=== PATIENT | female | born 1945 | race Caucasian/White ===

== ENCOUNTER 2017-06-27 03:34 | Inpatient (IN) | payer OTHER ==
[~2017-06-27] VITALS: Ht 160 cm; Wt 97.1 kg
[~2017-06-27 03:34] MED LIST: ALLO300T PO; AMLO10TA2 PO; AMLO5TAB2 PO; ASPI-621 PO; ATOR40TA78 PO; CARV6.252 PO; CLOP75TA PO; HYDR25TA6 PO; IRBE300T16 PO; METF500T4 PO; TICA90TA PO
[2017-06-27] MEDS ORDERED: APIX5TAB PO (04:11)
[2017-06-27] MEDS ORDERED: METO25TA35 PO (04:11)
[2017-06-27] MEDS ORDERED: SODIUM CHLORIDE FLUSH 10ML SYR IVF ONE (05:00)
[2017-06-27] MEDS ORDERED: SODIUM CHLORIDE 0.9% 1,000ML IVBOLUS ONE (05:00)
[2017-06-27 05:39] LABS: HEMATOCRIT 39.5 % (34.6-47.8); HEMOGLOBIN 12.6 g/dL (11.7-16.4); WHITE BLOOD COUNT 9.3 x10^3/uL (3.4-10)
[2017-06-27 05:45] LABS: ASPARTATE AMINO TRANSFERASE 13 U/L (15-37); BLOOD UREA NITROGEN 16 mg/dL (7-18)
[2017-06-27 05:54] LABS: IS PT STATUS REG ER OR PRE ER? YES
[2017-06-27] MEDS ORDERED: CEFTRIAXONE PMX 1GM/50ML 50 ML ONE (06:42)
[2017-06-27] MEDS ORDERED: SODIUM CHLORIDE FLUSH 10ML SYR IVF PRN (07:00)
[2017-06-27] MEDS ORDERED: CEFTRIAXONE PMX 1GM/50ML 50 ML IV ONE (07:00)
[2017-06-27] MEDS ORDERED: LABETALOL 5MG/ML, 20ML IVPush PRN (08:00)
[2017-06-27] MEDS ORDERED: DOCUSATE 100 MG CAPSULE PO PRN (08:00)
[2017-06-27] MEDS ORDERED: HYDROcodone/APAP 5/325 TABLET PO PRN (08:00)
[2017-06-27] MEDS ORDERED: ACETAMINOPHEN 325 MG TABLET PO PRN (08:00)
[2017-06-27] MEDS ORDERED: MORPHINE SULFATE 4 MG/ML, 1ML IVPush PRN (08:00)
[2017-06-27] MEDS ORDERED: hydrALAzine 20 MG/ML, 1ML IVPush PRN (08:00)
[2017-06-27] MEDS ORDERED: ENALAPRILAT 1.25 MG/ML, 2ML IVPush PRN (08:00)
[2017-06-27] MEDS ORDERED: PROMETHAZINE 25 MG/ML, 1ML IM PRN (08:00)
[2017-06-27] MEDS ORDERED: POLYETHYLENE GLYCOL 17 GM PACKET PO PRN (08:00)
[2017-06-27] MEDS ORDERED: BISACODYL 10 MG SUPP PR PRN (08:00)
[2017-06-27] MEDS ORDERED: METOCLOPRAMIDE 5 MG/ML, 2ML IVPush PRN (08:00)
[2017-06-27] MEDS ORDERED: ONDANSETRON 2MG/ML, 2ML IVPush PRN (08:00)
[2017-06-27 08:28] VITALS: BP 160/70
[2017-06-27 08:38] LABS: IS PT STATUS REG ER OR PRE ER? NO
[2017-06-27] MEDS: CEFTRIAXONE PMX 1GM/50ML 50 ML IV SCH (08:50)
[2017-06-27] MEDS ORDERED: ASPI-515 PO (09:52)
[2017-06-27] MEDS: AMLODIPINE 5 MG TABLET PO SCH (11:09)
[2017-06-27] MEDS: HYDROCHLOROTHIAZIDE 25 MG TABLET PO SCH (11:09)
[2017-06-27] MEDS: METOPROLOL TARTRATE 25 MG TABLET PO SCH (11:09)
[2017-06-27] MEDS: ALLOPURINOL 300 MG TABLET PO SCH (11:09)
[2017-06-27] MEDS: APIXABAN 5 MG TABLET PO SCH ×2 (11:09→20:05)
[2017-06-27] MEDS: IRBESARTAN 300 MG TABLET PO SCH (11:09)
[2017-06-27] MEDS ORDERED: GLUCAGON 1 MG IM PRN (12:00)
[2017-06-27] MEDS ORDERED: DEXTROSE 4 GM TAB.CHEW PO PRN (12:00)
[2017-06-27] MEDS ORDERED: DEXTROSE 50%, 50ML SYRINGE IVPush PRN (12:00)
[2017-06-27] MEDS: ASPIRIN 81 MG TABLET EC PO SCH ×2 (12:18→20:19)
[2017-06-27] MEDS ORDERED: MECLIZINE 12.5 MG TABLET PO PRN (12:30)
[2017-06-27 12:49] VITALS: BP 145/70
[2017-06-27 14:32] LABS: IS PT STATUS REG ER OR PRE ER? NO
[2017-06-27] MEDS: INSULIN ASPART 100 UNITS/ML, PEN SQ-INSULIN SCH ×2 (16:14→20:06)
[2017-06-27] MEDS: SODIUM CHLORIDE FLUSH 10ML SYR IVF SCH (20:05)
[2017-06-27 20:10] VITALS: BP 144/72
[2017-06-27] MEDS ORDERED: ATORVASTATIN 40 MG TABLET PO SCH (21:00)
[2017-06-27] MEDS ORDERED: ASPIRIN 81 MG TABLET EC PO SCH (21:00)
[2017-06-28 03:12] VITALS: BP 144/90
[2017-06-28 06:24] LABS: HEMATOCRIT 39.2 % (34.6-47.8); HEMOGLOBIN 12.5 g/dL (11.7-16.4); WHITE BLOOD COUNT 7.7 x10^3/uL (3.4-10)
[2017-06-28 06:38] LABS: BLOOD UREA NITROGEN 13 mg/dL (7-18)
[2017-06-28 06:48] LABS: ASPARTATE AMINO TRANSFERASE 11 U/L (15-37)
[2017-06-28] MEDS: INSULIN ASPART 100 UNITS/ML, PEN SQ-INSULIN SCH ×3 (07:00→15:53)
[2017-06-28 08:24] VITALS: BP 156/70
[2017-06-28] MEDS: CEFTRIAXONE PMX 1GM/50ML 50 ML IV SCH (08:27)
[2017-06-28] MEDS: APIXABAN 5 MG TABLET PO SCH (08:28)
[2017-06-28] MEDS: METOPROLOL TARTRATE 25 MG TABLET PO SCH (08:28)
[2017-06-28] MEDS: HYDROCHLOROTHIAZIDE 25 MG TABLET PO SCH (08:28)
[2017-06-28] MEDS: IRBESARTAN 300 MG TABLET PO SCH (08:28)
[2017-06-28] MEDS: ASPIRIN 81 MG TABLET EC PO SCH (08:28)
[2017-06-28] MEDS: AMLODIPINE 5 MG TABLET PO SCH (08:28)
[2017-06-28] MEDS: SODIUM CHLORIDE FLUSH 10ML SYR IVF SCH (08:28)
[2017-06-28] MEDS: ALLOPURINOL 300 MG TABLET PO SCH (08:28)
[2017-06-28] MEDS ORDERED: MAGNESIUM SULFATE PMX 2GM/50ML 50 ML IV ONE (10:00)
[2017-06-28 12:55] VITALS: BP 149/74
[2017-06-28] MEDS ORDERED: REGADENOSON 0.4 MG/5 ML SYRINGE ONE (14:46)
[2017-06-28] MEDS ORDERED: LACT1CAP24 PO (17:45)
[2017-06-28] MEDS ORDERED: CEFD300C37 PO (17:45)
== END 2017-06-28 18:23 | disposition home or self-care (01) | DRG 690 ==
LOC: ED 05:09 → EDIP 06:51 → 5SO 08:20
PROVIDERS: ADMIT Internal Medicine; ATTEND Internal Medicine
DX: N30.00 Acute cystitis without hematuria (principal); D68.69 Other thrombophilia; I48.92 Unspecified atrial flutter; I50.32 Chronic diastolic (congestive) heart failure; E11.40 Type 2 diabetes mellitus with diabetic neuropathy, unspecified; I11.0 Hypertensive heart disease with heart failure; I48.0 Paroxysmal atrial fibrillation; E66.01 Morbid (severe) obesity due to excess calories; E78.00 Pure hypercholesterolemia, unspecified; E78.5 Hyperlipidemia, unspecified; F41.1 Generalized anxiety disorder; H81.10 Benign paroxysmal vertigo, unspecified ear; I25.10 Atherosclerotic heart disease of native coronary artery without angina pectoris; I25.2 Old myocardial infarction; I34.0 Nonrheumatic mitral (valve) insufficiency; M10.9 Gout, unspecified; Z68.37 Body mass index [BMI] 37.0-37.9, adult; Z95.5 Presence of coronary angioplasty implant and graft; Z79.84 Long term (current) use of oral hypoglycemic drugs; Z79.899 Other long term (current) drug therapy; Z79.01 Long term (current) use of anticoagulants; Z79.82 Long term (current) use of aspirin; K52.9 Noninfective gastroenteritis and colitis, unspecified
CPT/HCPCS: 36415; 70551; 74022; 78452; 80053; 80061; 81001; 82962; 83735; 84443; 84484; 85025; 87086; 93005; 93017; 93306; 96365; J0696; J2785; A9502; C9898; J3475; J7030

== ENCOUNTER 2017-12-24 02:36 | Emergency (ER) | payer OTHER ==
[~2017-12-24] VITALS: Ht 160 cm; Wt 98.9 kg
[~2017-12-24 02:36] MED LIST changes: +APIX5TAB PO; +ASPI-515 PO; +CEFD300C37 PO; +LACT1CAP24 PO; +METO25TA35 PO
[2017-12-24] MEDS ORDERED: ONDANSETRON 2MG/ML, 2ML ONE (03:12)
[2017-12-24] MEDS ORDERED: SODIUM CHLORIDE 0.9% 1,000ML IVBOLUS ONE (03:30)
[2017-12-24] MEDS ORDERED: ONDANSETRON 2MG/ML, 2ML IVPush ONE (03:30)
[2017-12-24 03:48] LABS: BASOPHILS # (AUTO) 0.03 x10^3/uL (0-0.1); BASOPHILS % (AUTO) 0 % (0-1); EOSINOPHILS # (AUTO) 0.15 x10^3/uL (0-0.4); EOSINOPHILS % (AUTO) 2 % (1-7); LYMPHOCYTES # (AUTO) 1.61 x10^3/uL (1-3.4); LYMPHOCYTES % (AUTO) 16 % (22-44); MD NO; MEAN CORPUSCULAR HGB CONC 32.1 g/dL (32.4-35.8); MEAN CORPUSCULAR VOLUME 84.1 fL (80-100); MEAN PLATELET VOLUME 9.6 fL (7.4-10.4); MONOCYTES # (AUTO) 0.47 x10^3/uL (0.2-0.8); MONOCYTES % (AUTO) 5 % (2-9); NEUTROPHILS # (AUTO) 7.93 x10^3/uL (1.8-6.8); NEUTROPHILS % (AUTO) 78 % (42-75); PLATELET COUNT 263 x10^3/uL (130-400); RED BLOOD COUNT 4.49 x10^6/uL (3.82-5.3); RED CELL DISTRIBUTION WIDTH 15.8 % (9.6-15.2)
[2017-12-24 04:01] LABS: ALANINE AMINOTRANSFERASE 22 U/L (12-78); ALBUMIN 3.6 g/dL (3.4-5.0); ANION GAP 5 mmol/L (5-15); CALCIUM 8.3 mg/dL (8.5-10.1); CHLORIDE 105 mmol/L (98-107); CREATININE 0.69 mg/dL (0.55-1.02)
[2017-12-24 04:05] LABS: ALKALINE PHOSPHATASE 93 U/L (45-117); BILIRUBIN,TOTAL 0.2 mg/dL (0.2-1.0); TOTAL PROTEIN 7.8 g/dL (6.4-8.2); TROPONIN I < 0.015 ng/mL (0.000-0.045)
[2017-12-24 04:59] VITALS: BP 126/47
== END 2017-12-24 05:23 | disposition home or self-care (01) ==
LOC: ED 03:55
DX: R42 Dizziness and giddiness (principal); E11.9 Type 2 diabetes mellitus without complications; E78.00 Pure hypercholesterolemia, unspecified; I25.2 Old myocardial infarction; I10 Essential (primary) hypertension
CPT/HCPCS: 36415; 70450; 71045; 80053; 84484; 85025; 93005; 96361; 96374; 99285; J2405; J7030

== ENCOUNTER 2018-11-17 08:37 | Inpatient (IN) | payer OTHER ==
[~2018-11-17] VITALS: Ht 160 cm; Wt 96.8 kg
[~2018-11-17 08:37] MED LIST changes: +AMLO-150 PO; -AMLO10TA2 PO; +AMLO10TA6 PO; -AMLO5TAB2 PO; -ASPI-621 PO; +ASPI81TA45 PO; +METF500T17 PO; -METF500T4 PO
[2018-11-17] MEDS ORDERED: DILTIAZEM 5 MG/ML, 5ML ONE (09:29)
[2018-11-17] MEDS ORDERED: DILTIAZEM 5 MG/ML, 5ML IVPush ONE (09:30)
[2018-11-17 09:46] LABS: BASOPHILS # (AUTO) 0.04 x10^3/uL (0-0.1); BASOPHILS % (AUTO) 0 % (0-1); EOSINOPHILS # (AUTO) 0.21 x10^3/uL (0-0.4); EOSINOPHILS % (AUTO) 2 % (1-7); LYMPHOCYTES # (AUTO) 2.34 x10^3/uL (1-3.4); LYMPHOCYTES % (AUTO) 22 % (22-44); MD NO; MEAN CORPUSCULAR HEMOGLOBIN 27.7 pg (27.0-34.8); MEAN CORPUSCULAR HGB CONC 32.3 g/dL (32.4-35.8); MEAN CORPUSCULAR VOLUME 85.8 fL (80-100); MEAN PLATELET VOLUME 10.3 fL (7.4-10.4); MONOCYTES % (AUTO) 4 % (2-9); NEUTROPHILS # (AUTO) 7.67 x10^3/uL (1.8-6.8); NEUTROPHILS % (AUTO) 72 % (42-75); PLATELET COUNT 281 x10^3/uL (130-400); RED BLOOD COUNT 5.02 x10^6/uL (3.82-5.3); RED CELL DISTRIBUTION WIDTH 15.4 % (9.6-15.2)
[2018-11-17 09:54] LABS: INTERNATIONAL NORMALIZED RATIO 1.08 (0.93-1.1); PROTHROMBIN TIME 11.4 Seconds (9.6-11.5)
[2018-11-17 09:56] LABS: ANION GAP 10 mmol/L (5-15); CALCIUM 8.8 mg/dL (8.5-10.1); CHLORIDE 104 mmol/L (98-107)
--- NOTE | 2018-11-17 09:59 | NUR ---
Cassie from [facility]'s office has called, a follow up is scheduled for Nov 18 at 0900 at [id number] [facility] [id number] patient updated
[2018-11-17 10:01] LABS: ALANINE AMINOTRANSFERASE 23 U/L (12-78); ALKALINE PHOSPHATASE 126 U/L (45-117); BILIRUBIN,TOTAL 0.6 mg/dL (0.2-1.0); CREATININE 0.69 mg/dL (0.55-1.02); TOTAL PROTEIN 8.6 g/dL (6.4-8.2)
[2018-11-17] MEDS: PANTOPROZOLE 40MG TABLET PO SCH ×3 (12:00→19:59)
[2018-11-17] MEDS ORDERED: ONDANSETRON 2MG/ML, 2ML IVPush PRN (12:00)
[2018-11-17] MEDS ORDERED: hydrALAzine 20 MG/ML, 1ML IVPush PRN (12:00)
[2018-11-17] MEDS: METOPROLOL TARTRATE 25 MG TABLET PO SCH ×2 (12:00→13:18)
[2018-11-17] MEDS ORDERED: morphine SULFATE 10 MG/ML, 1ML IVPush PRN (12:00)
[2018-11-17] MEDS: APIXABAN 5 MG TABLET PO SCH ×3 (12:00→19:59)
[2018-11-17] MEDS: SUCRALFATE 1 GM TABLET PO SCH ×3 (12:00→19:59)
[2018-11-17] MEDS ORDERED: TEMAZEPAM 15 MG CAPSULE PO PRN (12:00)
[2018-11-17] MEDS ORDERED: OXYcodone IR 5MG TABLET PO PRN (12:00)
[2018-11-17] MEDS: ALLOPURINOL 300 MG TABLET PO SCH ×2 (12:00→13:18)
[2018-11-17] MEDS ORDERED: POLYETHYLENE GLYCOL 17 GM PACKET PO PRN (12:00)
--- NOTE | 2018-11-17 12:19 | NUR ---
Report given to YOSHI Yuan, patient updated of transfer plan, RTG status now. During this ER visit the patient has been in afib on the awake overnight monitor rate down to 80s following cardizem push by YOSHI Stevens, at this time Afib in the 120s, vitals otherwise stable. She ambulates to bathroom safely unassisted, PWD, call light in reach, NADN, she reports that her symptoms are reduced following cardizem administration.
[2018-11-17] MEDS: DILTIAZEM 125 MG in SODIUM CHLORIDE 0.9% 100 ML IV SCH (13:18)
[2018-11-17 13:31] VITALS: BP 107/66
[2018-11-17] MEDS ORDERED: CARVEDILOL 12.5 MG TABLET PO SCH (18:00)
[2018-11-17] MEDS: ACETAMINOPHEN 325 MG TABLET PO PRN (18:23)
[2018-11-17] MEDS: ATORVASTATIN 40 MG TABLET PO SCH (20:00)
[2018-11-17] MEDS: SODIUM CHLORIDE FLUSH 10ML SYR IVF SCH (20:00)
[2018-11-17 21:55] VITALS: BP 105/76
[2018-11-18] MEDS: DILTIAZEM 125 MG in SODIUM CHLORIDE 0.9% 100 ML IV SCH (00:31)
[2018-11-18 01:02] VITALS: BP 133/74
[2018-11-18 05:01] LABS: MICROSCOPIC AUTO
[2018-11-18 05:09] LABS: CULTURE INDICATED? YES
[2018-11-18 06:07] LABS: BASOPHILS # (AUTO) 0.03 x10^3/uL (0-0.1); BASOPHILS % (AUTO) 0 % (0-1); EOSINOPHILS # (AUTO) 0.16 x10^3/uL (0-0.4); EOSINOPHILS % (AUTO) 2 % (1-7); LYMPHOCYTES # (AUTO) 2.85 x10^3/uL (1-3.4); LYMPHOCYTES % (AUTO) 29 % (22-44); MD NO; MEAN CORPUSCULAR HEMOGLOBIN 28.7 pg (27.0-34.8); MEAN CORPUSCULAR HGB CONC 33.1 g/dL (32.4-35.8); MEAN CORPUSCULAR VOLUME 86.7 fL (80-100); MEAN PLATELET VOLUME 10.2 fL (7.4-10.4); MONOCYTES # (AUTO) 0.54 x10^3/uL (0.2-0.8); MONOCYTES % (AUTO) 5 % (2-9); NEUTROPHILS # (AUTO) 6.38 x10^3/uL (1.8-6.8); NEUTROPHILS % (AUTO) 64 % (42-75); PLATELET COUNT 269 x10^3/uL (130-400); RED CELL DISTRIBUTION WIDTH 15.9 % (9.6-15.2)
[2018-11-18 06:21] LABS: ALBUMIN 3.4 g/dL (3.4-5.0); ANION GAP 9 mmol/L (5-15); CALCIUM 8.7 mg/dL (8.5-10.1); CHLORIDE 106 mmol/L (98-107)
[2018-11-18 06:26] LABS: ALANINE AMINOTRANSFERASE 20 U/L (12-78); ALKALINE PHOSPHATASE 103 U/L (45-117); BILIRUBIN,TOTAL 0.7 mg/dL (0.2-1.0); CREATININE 0.61 mg/dL (0.55-1.02); TOTAL PROTEIN 7.4 g/dL (6.4-8.2)
[2018-11-18 06:36] LABS: HEMOGLOBIN A1C 6.9 % (4.2-6.3)
[2018-11-18 07:18] VITALS: BP 121/62
[2018-11-18 08:12] VITALS: BP 116/67
[2018-11-18] MEDS: ALLOPURINOL 300 MG TABLET PO SCH (08:13)
[2018-11-18] MEDS: APIXABAN 5 MG TABLET PO SCH ×2 (08:13→22:07)
[2018-11-18] MEDS: SUCRALFATE 1 GM TABLET PO SCH ×4 (08:13→22:06)
[2018-11-18] MEDS: PANTOPROZOLE 40MG TABLET PO SCH ×2 (08:13→22:07)
[2018-11-18] MEDS: SODIUM CHLORIDE FLUSH 10ML SYR IVF SCH (08:14)
[2018-11-18] MEDS: METOPROLOL TARTRATE 25 MG TABLET PO SCH (08:14)
[2018-11-18] MEDS: ACETAMINOPHEN 325 MG TABLET PO PRN ×2 (08:33→22:07)
[2018-11-18] MEDS ORDERED: MAGNESIUM SULFATE PMX 4GM/100M 100 ML IVPB ONE (10:30)
[2018-11-18] MEDS ORDERED: DILTIAZEM 125 MG in SODIUM CHLORIDE 0.9% 100 ML IV SCH (12:00)
[2018-11-18 13:47] VITALS: BP 135/63
[2018-11-18] MEDS: DILTIAZEM 30 MG TABLET PO SCH ×2 (18:45→22:11)
[2018-11-18 18:46] VITALS: BP 153/64
[2018-11-18] MEDS: CEFTRIAXONE PMX 2GM/50ML 50 ML IV SCH (22:05)
[2018-11-18] MEDS: ATORVASTATIN 40 MG TABLET PO SCH (22:07)
[2018-11-18 22:11] VITALS: BP 156/78
[2018-11-19 00:30] VITALS: BP 128/65
[2018-11-19 04:40] VITALS: BP 146/72
[2018-11-19] MEDS: DILTIAZEM 30 MG TABLET PO SCH (04:41)
[2018-11-19] MEDS: ACETAMINOPHEN 325 MG TABLET PO PRN ×2 (04:44→09:06)
[2018-11-19 07:45] VITALS: BP 158/79
[2018-11-19] MEDS: SUCRALFATE 1 GM TABLET PO SCH ×4 (08:10→20:44)
[2018-11-19] MEDS: METOPROLOL TARTRATE 25 MG TABLET PO SCH ×2 (09:05→20:44)
[2018-11-19] MEDS: ALLOPURINOL 300 MG TABLET PO SCH (09:05)
[2018-11-19] MEDS: APIXABAN 5 MG TABLET PO SCH ×2 (09:05→20:44)
[2018-11-19] MEDS: PANTOPROZOLE 40MG TABLET PO SCH ×2 (09:05→20:44)
[2018-11-19] MEDS ORDERED: FURO20TA3 PO (09:09)
[2018-11-19 11:10] VITALS: BP 155/70
[2018-11-19] MEDS: IRBESARTAN 300 MG TABLET PO SCH (11:11)
[2018-11-19] MEDS ORDERED: DILTIAZEM 30 MG TABLET PO SCH (12:00)
[2018-11-19 13:02] VITALS: BP 134/67
[2018-11-19] MEDS: ATORVASTATIN 40 MG TABLET PO SCH (20:43)
[2018-11-19 21:32] VITALS: BP 149/73
[2018-11-19] MEDS: CEFTRIAXONE PMX 2GM/50ML 50 ML IV SCH (22:26)
[2018-11-20 03:05] VITALS: BP 159/63
[2018-11-20] MEDS: SUCRALFATE 1 GM TABLET PO SCH ×2 (06:23→11:23)
[2018-11-20 08:10] VITALS: BP 159/73
[2018-11-20] MEDS: ALLOPURINOL 300 MG TABLET PO SCH (09:11)
[2018-11-20] MEDS: PANTOPROZOLE 40MG TABLET PO SCH (09:12)
[2018-11-20] MEDS: IRBESARTAN 300 MG TABLET PO SCH (09:12)
[2018-11-20] MEDS: APIXABAN 5 MG TABLET PO SCH (09:12)
[2018-11-20] MEDS: METOPROLOL TARTRATE 25 MG TABLET PO SCH (09:13)
[2018-11-20] MEDS ORDERED: SUCR1TAB33 PO (12:21)
[2018-11-20] MEDS ORDERED: METO25TA35 PO (12:21)
[2018-11-20] MEDS ORDERED: OMEP-110 PO (12:21)
[2018-11-20] MEDS ORDERED: CEFTRIAXONE PMX 2GM/50ML 50 ML IV ONE (13:00)
[2018-11-20 13:34] VITALS: BP 161/73
== END 2018-11-20 15:29 | disposition home or self-care (01) | DRG 690 ==
LOC: ED 09:03 → EDIP 11:12 → SUATTDRO 11:24 → 5SO 12:52 → 4EST 11-19 14:08
PROVIDERS: ADMIT Hospitalist; ATTEND Hospitalist
DX: N39.0 Urinary tract infection, site not specified (principal); D68.69 Other thrombophilia; I50.32 Chronic diastolic (congestive) heart failure; I48.0 Paroxysmal atrial fibrillation; E66.01 Morbid (severe) obesity due to excess calories; E11.40 Type 2 diabetes mellitus with diabetic neuropathy, unspecified; E78.5 Hyperlipidemia, unspecified; F41.1 Generalized anxiety disorder; G89.29 Other chronic pain; M25.511 Pain in right shoulder; I11.0 Hypertensive heart disease with heart failure; I25.10 Atherosclerotic heart disease of native coronary artery without angina pectoris; I25.2 Old myocardial infarction; Z80.0 Family history of malignant neoplasm of digestive organs; Z85.820 Personal history of malignant melanoma of skin; Z95.5 Presence of coronary angioplasty implant and graft; K21.9 Gastro-esophageal reflux disease without esophagitis; Z53.20 Procedure and treatment not carried out because of patient's decision for unspecified reasons; Z68.37 Body mass index [BMI] 37.0-37.9, adult
CPT/HCPCS: 36415; 71045; 80053; 81001; 83036; 83735; 83880; 84100; 84443; 85025; 85610; 85730; 87040; 87086; 93005; 93306; 96374; 99285; G0378; J0696; J3475

== ENCOUNTER → 2019-02-03 | Outpatient (CLI) | payer OTHER ==
[~2019-02-03] MED LIST changes: +ACID1TAB7 PO; -AMLO10TA6 PO; +AMLO10TA8 PO; +CARV12.543 PO; +CIPR500T3 PO; +FURO20TA3 PO; +OMEP-110 PO; +SUCR1TAB33 PO
== END | disposition home or self-care (01) ==
LOC: RAD 15:59
PROVIDERS: ATTEND Family Medicine
DX: M79.604 Pain in right leg (principal)

== ENCOUNTER 2019-02-06 16:08 | Observation (INO) | payer OTHER ==
[~2019-02-06] VITALS: Ht 160 cm; Wt 94.0 kg
[~2019-02-06 16:08] MED LIST changes: -ACID1TAB7 PO; -CARV12.543 PO; -CIPR500T3 PO
--- NOTE | 2019-02-06 16:46 | NUR ---
FIRST CONTACT WITH PT. Pt resting on gurney connected to all monitors. Pt states she had "a sharp pain (center chest) today that went straight to my back, and my feet were swollen, I felt dizzy. I checked my blood pressure and it was very high." Pt is tachycardic. All safety measures in place. Call light within reach Pt denies n/v/d, sob
[2019-02-06] MEDS ORDERED: CIPR500T3 PO (17:09)
[2019-02-06] MEDS ORDERED: OMEP-110 PO (17:09)
[2019-02-06] MEDS ORDERED: METO25TA35 PO (17:09)
[2019-02-06] MEDS ORDERED: SODIUM CHLORIDE FLUSH 10ML SYR IVF ONE (18:30)
[2019-02-06 18:37] LABS: BASOPHILS # (AUTO) 0.04 x10^3/uL (0-0.1); BASOPHILS % (AUTO) 0 % (0-1); EOSINOPHILS # (AUTO) 0.08 x10^3/uL (0-0.4); EOSINOPHILS % (AUTO) 1 % (1-7); LYMPHOCYTES # (AUTO) 2.82 x10^3/uL (1-3.4); LYMPHOCYTES % (AUTO) 21 % (22-44); MD NO; MEAN CORPUSCULAR HGB CONC 32.7 g/dL (32.4-35.8); MEAN CORPUSCULAR VOLUME 85.6 fL (80-100); MEAN PLATELET VOLUME 10.2 fL (7.4-10.4); MONOCYTES # (AUTO) 0.47 x10^3/uL (0.2-0.8); MONOCYTES % (AUTO) 4 % (2-9); NEUTROPHILS # (AUTO) 9.74 x10^3/uL (1.8-6.8); NEUTROPHILS % (AUTO) 74 % (42-75); PLATELET COUNT 298 x10^3/uL (130-400); RED CELL DISTRIBUTION WIDTH 15.8 % (9.6-15.2)
[2019-02-06 18:48] LABS: ALBUMIN 3.7 g/dL (3.4-5.0); ANION GAP 8 mmol/L (5-15); CALCIUM 9.1 mg/dL (8.5-10.1); CHLORIDE 104 mmol/L (98-107)
[2019-02-06 18:53] LABS: ALANINE AMINOTRANSFERASE 21 U/L (12-78); ALKALINE PHOSPHATASE 109 U/L (45-117); BILIRUBIN,TOTAL 0.3 mg/dL (0.2-1.0); CREATININE 0.68 mg/dL (0.55-1.02); TOTAL PROTEIN 7.6 g/dL (6.4-8.2); TROPONIN I < 0.015 ng/mL (0.000-0.045)
--- NOTE | 2019-02-06 19:16 | NUR ---
pt resting on gurney talking on cell phone, denies needs, monitors in place, call light within reach. awaiting room for admit
[2019-02-06] MEDS ORDERED: ACETAMINOPHEN 325 MG TABLET PO PRN (21:00)
[2019-02-06] MEDS ORDERED: DOCUSATE 100 MG CAPSULE PO PRN (21:00)
[2019-02-06] MEDS ORDERED: LIDODERM 5% PATCH TD PRN (21:00)
[2019-02-06] MEDS ORDERED: ATORVASTATIN 40 MG TABLET PO SCH (21:00)
[2019-02-06] MEDS ORDERED: TEMAZEPAM 15 MG CAPSULE PO PRN (21:00)
[2019-02-06] MEDS ORDERED: LABETALOL 5 MG/ML SYRINGE IVPush PRN (21:00)
[2019-02-06] MEDS ORDERED: ONDANSETRON 2MG/ML, 2ML IVPush PRN (21:00)
[2019-02-06 21:29] LABS: FREE T4 (FREE THYROXINE) 0.98 ng/dL (0.76-1.46); THYROID STIMULATING HORMONE 1.81 mIU/L (0.358-3.740)
[2019-02-06] MEDS ORDERED: CIPROFLOXACIN 250 MG TABLET ONE (22:00)
[2019-02-06] MEDS ORDERED: MAGNESIUM SULFATE PMX 2GM/50ML 50 ML IV ONE (22:00)
[2019-02-06] MEDS: CIPROFLOXACIN 500 MG TABLET PO SCH (22:08)
[2019-02-06] MEDS: APIXABAN 5 MG TABLET PO SCH (22:08)
[2019-02-06 22:28] VITALS: BP 144/89
[2019-02-06] MEDS: DILTIAZEM 5 MG/ML, 5ML IVPush PRN (23:50)
[2019-02-07 00:09] LABS: MICROSCOPIC NOT IND
[2019-02-07 00:11] LABS: CULTURE INDICATED? NO
[2019-02-07 01:14] LABS: TROPONIN I 0.016 ng/mL (0.000-0.045)
[2019-02-07 01:15] VITALS: BP 118/83
[2019-02-07] MEDS: DILTIAZEM 5 MG/ML, 5ML IVPush PRN ×2 (02:53→03:36)
[2019-02-07 03:35] VITALS: BP 138/73
[2019-02-07 06:58] VITALS: BP 120/80
[2019-02-07] MEDS: INSULIN LISPRO 100 UNITS/ML, PEN SQ-INSULIN SCH ×3 (07:00→16:00)
[2019-02-07 08:42] LABS: BASOPHILS % (AUTO) 1 % (0-1); EOSINOPHILS # (AUTO) 0.07 x10^3/uL (0-0.4); EOSINOPHILS % (AUTO) 1 % (1-7); LYMPHOCYTES % (AUTO) 25 % (22-44); MD NO; MEAN CORPUSCULAR HEMOGLOBIN 27.8 pg (27.0-34.8); MEAN CORPUSCULAR HGB CONC 32.6 g/dL (32.4-35.8); MEAN CORPUSCULAR VOLUME 85.4 fL (80-100); MEAN PLATELET VOLUME 10.3 fL (7.4-10.4); MONOCYTES # (AUTO) 0.56 x10^3/uL (0.2-0.8); MONOCYTES % (AUTO) 5 % (2-9); NEUTROPHILS # (AUTO) 7.42 x10^3/uL (1.8-6.8); NEUTROPHILS % (AUTO) 68 % (42-75); PLATELET COUNT 272 x10^3/uL (130-400); RED BLOOD COUNT 4.77 x10^6/uL (3.82-5.3); RED CELL DISTRIBUTION WIDTH 16.2 % (9.6-15.2)
[2019-02-07] MEDS ORDERED: CIPROFLOXACIN 250 MG TABLET ONE (08:45)
[2019-02-07] MEDS: APIXABAN 5 MG TABLET PO SCH (08:49)
[2019-02-07] MEDS: CIPROFLOXACIN 500 MG TABLET PO SCH (08:49)
[2019-02-07 08:50] LABS: ANION GAP 7 mmol/L (5-15); CALCIUM 8.9 mg/dL (8.5-10.1); CHLORIDE 106 mmol/L (98-107)
[2019-02-07 08:57] LABS: CREATININE 0.68 mg/dL (0.55-1.02); TROPONIN I < 0.015 ng/mL (0.000-0.045)
[2019-02-07] MEDS ORDERED: AMLODIPINE 10 MG TAB PO SCH (09:00)
[2019-02-07] MEDS ORDERED: IRBESARTAN 300 MG TABLET PO SCH (09:00)
[2019-02-07] MEDS ORDERED: METOPROLOL TARTRATE 25 MG TABLET PO SCH (09:00)
[2019-02-07] MEDS ORDERED: OMEPRAZOLE 20 MG CAPSULE.DR PO SCH (09:00)
[2019-02-07] MEDS ORDERED: ALLOPURINOL 300 MG TABLET PO SCH (09:00)
[2019-02-07] MEDS ORDERED: FUROSEMIDE 20 MG TABLET PO SCH (09:00)
[2019-02-07] MEDS ORDERED: ACETAMINOPHEN 325 MG TABLET PO PRN (10:00)
[2019-02-07] MEDS: LACTOBACILLUS CHEW TABLET PO SCH ×2 (11:56→16:00)
[2019-02-07 14:48] VITALS: BP 118/70
[2019-02-07] MEDS ORDERED: CARV12.543 PO (15:04)
[2019-02-07] MEDS ORDERED: ACID1TAB7 PO (15:04)
[2019-02-07] MEDS ORDERED: CARVEDILOL 12.5 MG TABLET PO SCH (18:00)
== END 2019-02-07 18:36 | disposition home or self-care (01) ==
LOC: ED 17:42 → EDIP 19:35 → INTOOBSV 19:35 → 5SO 20:43
PROVIDERS: ADMIT Internal Medicine; ATTEND Internal Medicine
DX: I48.2 Chronic atrial fibrillation (principal); R07.89 Other chest pain; D69.6 Thrombocytopenia, unspecified; I11.9 Hypertensive heart disease without heart failure; R19.7 Diarrhea, unspecified; M10.9 Gout, unspecified; I21.9 Acute myocardial infarction, unspecified; F41.9 Anxiety disorder, unspecified; R73.9 Hyperglycemia, unspecified; E83.42 Hypomagnesemia; G47.00 Insomnia, unspecified; Z79.82 Long term (current) use of aspirin; Z79.899 Other long term (current) drug therapy
CPT/HCPCS: 36415; 71045; 78452; 80048; 80053; 81003; 82962; 83605; 83735; 84439; 84443; 84484; 85025; 93005; 93017; 96365; 96366; 96375; 96376; 99284; A9502; C9898; G0378; J3475; 99285; J1815

== ENCOUNTER → 2021-05-01 | Outpatient (CLI) | payer MEDICARE ==
[~2021-05-01] MED LIST changes: +ACID1TAB7 PO; +AMLO-211 PO; -AMLO10TA8 PO; -ASPI-515 PO; +ASPI-963 PO; +CARV12.543 PO; +CIPR500T4 PO; -IRBE300T16 PO; +IRBE300T8 PO; +SINCALIDE (KINEVAC) 5 MCG IVPush ONE
== END | disposition home or self-care (01) ==
LOC: RAD 09:55 → EDSTATUS 10:30
PROVIDERS: ATTEND Surgery
DX: R10.9 Unspecified abdominal pain (principal)
CPT/HCPCS: 76700; 78227; A9537; J2805